=== PATIENT | male | born 1975 | race Caucasian/White ===

== ENCOUNTER 2016-10-31 15:54 | Emergency (ER) | payer OTHER ==
[~2016-10-31] VITALS: Ht 185.4 cm; Wt 77.1 kg
--- NOTE | ~2016-10-31 | CR94 ---
[facility] A Service of [facility] RADIOLOGY TEXT RESULTS PATIENT: REY MIDDLETON LOCATION: [facility] : 75 UNIT #: [id number] AGE: [address]: Janet Phelps SEX: M ORDER DR: [id number] [place], [place] [address] [id number] E MR#: [id number] #: [id number] NAME: REY MIDDLETON : 1975 SEX: M STUDY DATE/TIME: 10/31/2016 16:44 UNIT: [facility] ROOM: STUDY DESCRIPTION: CR Elbow Min 3 Views Rt Attending Physician: Janet Phelps Pa-C Ordering Physician: Janet Phelps Pa-C Primary Care Physician: No Primary Care Physician MEDICAL IMAGING REPORT This report is preliminary unless electronic signature is present EXAMINATION Three views, right elbow. DATE 10/31/2016 HISTORY Right elbow pain and swelling, which began 4 days ago. No known injury. COMPARISON None. FINDINGS Questionable linear lucency or nondisplaced fracture of the coronoid process of the olecranon, seen only on the lateral image. Similar finding can also be seen on the 10/04/2010 examination suggesting this is a chronic finding. No new or acute fracture is identified. There is no joint dislocation. Mild right elbow soft tissue swelling is present posteriorly. IMPRESSION 1. 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 No definite new or acute appearing fracture is identified. 2. Posterior right elbow soft tissue swelling. 3. No dislocation. Dictated by... Aggie Powell M.D. [facility] A Service [facility] RADIOLOGY TEXT RESULTS PATIENT: REY MIDDLETON LOCATION: [facility] : 75 UNIT #: [id number] AGE: [address]: Janet Phelps SEX: M ORDER DR: THIS IS AN ELECTRONICALLY VERIFIED REPORT Aggie Powell M.D. at 11/03/2016 7:37 AM Davion TD: 11/01/2016 06:33 JOB #: [id number] MEDICAL IMAGING REPORT Page 1 of 1 COPY
[~2016-10-31 15:54] MED LIST: CIALIS10 MG PO; EC-NAPROSYN500 MG PO; LORTAB 5/500 TA1 TA1 PO; LORTAB 5/500 TA1 TA2 PO; NAPROSYN500 MG PO; PRILOSEC; VICODIN 5/500 T1 TAB PO
== END 2016-10-31 17:38 | disposition home or self-care (01) ==
LOC: CFTX 15:54 → CED 15:54 → CFTX 17:01
DX: L03.113 Cellulitis of right upper limb (principal); F17.210 Nicotine dependence, cigarettes, uncomplicated
CPT/HCPCS: 73080; 99283